=== PATIENT | male | born 1950 | race Caucasian/White ===

== ENCOUNTER → 2016-09-17 | Outpatient (CLI) | payer OTHER ==
--- NOTE | 2016-09-17 14:33 | DIAGNOSTIC IMAGING REPORT ---
(CHEST) THORAX WITHOUT CT DOSE: 356.70 mGy.cm HISTORY: Pulmonary nodule R91.8 Pulmonary [id number] TECHNIQUE: Multiaxial CT images of the chest were performed without contrast. A dose lowering technique was utilized adhering to the principles of ALARA. COMPARISON: 09/18/2015 FINDINGS: Several parenchymal nodules unchanged from the prior study. 2 nodules one of which is pleural-based occupy the superior segment of the right lower lobe. These are unchanged. Micronodularity right base with nodules up to 2 mm are unchanged. There are no focal infiltrative changes. There is no significant mediastinal adenopathy. There is mild abscess chronic change of the thoracic aorta. There are several small low suspicion nodes of the axillary regions unchanged. IMPRESSION: 1. Stable pulmonary micronodules compared to the prior exam. 2. No evidence for new interval or progressive parenchymal nodule. Please refer to below summary of Fleischner criteria recommendations for follow-up of incidental CT nodules (John Ladd, Guidelines for management of small pulmonary nodules detected on CT scans: A statement from the Fleischner Society, Radiology 237: [phone].) SOLID NODULES Solitary nodule size: <6 mm * low risk patients: no follow-up needed * high risk patients: optional CT at 12 months Solitary nodule size: 6-8 mm * low risk patients: follow-up at 6-12 months, then consider further follow-up at 18-24 months * high risk patients: initial follow-up CT at 6-12 months and then at 18-24 months if no change Solitary nodule size: >8 mm * either low or high risk patients - consider follow-up CT at 3 months, and/or CT-PET, and/or biopsy Multiple nodules size: <6 mm * low risk patients: no routine follow-up * high risk patients: optional CT at 12 months Multiple nodules size: 6-8 mm * low risk patients: follow-up at 3-6 months, then consider further follow-up at 18-24 months * high risk patients: follow-up at 3-6 months, then at 18-24 months if no change Multiple nodules size: >8 mm * low risk patients: follow-up at 3-6 months, then consider further follow-up at 18-24 months * high risk patients: follow-up at 3-6 months, then at 18-24 months if no change Note: newly detected indeterminate nodule in persons 35 years of age or older. * Low risk patients: minimal or absent history of smoking and/or other known risk factors * high risk patients: history of smoking or of other known risk factors (e.g. first degree relative with lung cancer, or exposure to asbestos, radon, uranium) * if a nodule up to 8 mm is partly solid or is ground glass further follow-up is required after 24 months to exclude possible slow growing adenocarcinoma (LUBNA) SUBSOIL NODULES Solitary pure ground-glass nodule * nodule size <6 mm - no CT follow-up required * nodule size >=6 mm - follow-up CT at 6-12 months, then every 2 years until 5 years Solitary part-solid nodule * nodule size <6 mm - no CT follow-up required * nodule size >=6 mm - follow-up CT at 3-6 months. If unchanged, and solid component remains <6 mm, then annual follow-up for 5 years Multiple subsolid nodules * nodule size <6 mm - follow-up CT at 3-6 months, consider further follow-up at 2 and 4 years if stable * nodule size >=6 mm - follow-up CT at 3-6 months, subsequent management based on the most suspicious nodule(s) The above report was generated using voice recognition software. It may contain grammatical, syntax or spelling errors. Electronically signed by: Alec Mccullough M.D. 09/17/2016 2:31 PM Dictated Date/Time: 09/17/2016 2:28 PM
== END | disposition home or self-care (01) ==
LOC: C.CTS 13:46
PROVIDERS: ATTEND Internal Medicine Geriatric Medicine
DX: R91.8 Other nonspecific abnormal finding of lung field (principal)

== ENCOUNTER → 2017-09-10 | Outpatient (CLI) | payer OTHER ==
[2017-09-10 17:13] LABS: BASO % 1.5 %; EOS % 6.6 %; EOS ABS # 0.43 K/uL (0-0.5); HEMATOCRIT 44.9 % (42-52); HEMOGLOBIN 14.9 g/dL (14.0-18.0); IG# 0.01 K/uL (0.00-0.02); LYMPH ABS # 1.44 K/uL (1.2-3.4); MEAN CELL VOLUME 90.2 fL (80-100); MEAN CORPUSCULAR HEMOGLOBIN 29.9 pg (25-34); MEAN CORPUSCULAR HGB CONC 33.2 g/dl (32-36); MEAN PLATELET VOLUME 12.3 fL (7.4-10.4); MONO % 10.9 %; MONO ABS # 0.71 K/uL (0.11-0.59); NEUT % 58.8 %; NEUT ABS # 3.85 K/uL (1.4-6.5); PLATELET COUNT 209 K/uL (130-400); RED CELL DISTRIBUTION WIDTH CV 14.1 % (11.5-14.5); RED CELL DISTRIBUTION WIDTH SD 45.8 fL (36.4-46.3); WHITE BLOOD COUNT 6.54 K/uL (4.8-10.8)
[2017-09-10 18:07] LABS: ALBUMIN 3.8 gm/dl (3.4-5.0); ALKALINE PHOSPHATASE 66 U/L (45-117); ALT/SGPT 19 U/L (12-78); AST/SGOT 20 U/L (15-37); BLOOD UREA NITROGEN 9 mg/dl (7-18); CALCIUM 8.8 mg/dl (8.5-10.1); CARBON DIOXIDE 29 mmol/L (21-32); CHOLESTEROL 211 mg/dl (0-200); CREATININE 0.94 mg/dl (0.60-1.40); GLUCOSE 80 mg/dl (70-99); LDL CHOLESTEROL CALCULATED 150 mg/dl; POTASSIUM 3.9 mmol/L (3.5-5.1); SODIUM 139 mmol/L (136-145); TOTAL PROTEIN 7.6 gm/dl (6.4-8.2)
== END | disposition home or self-care (01) ==
LOC: C.LABBC 13:47
PROVIDERS: ATTEND Internal Medicine Geriatric Medicine
DX: Z00.00 Encounter for general adult medical examination without abnormal findings (principal); E78.5 Hyperlipidemia, unspecified; F41.8 Other specified anxiety disorders; I65.29 Occlusion and stenosis of unspecified carotid artery; J43.9 Emphysema, unspecified

== ENCOUNTER 2023-08-20 06:26 | Inpatient (IN) ==
--- NOTE | 2023-08-07 12:55 | Anesthesiology Consultation ---
Date of Service August 07, 2023 Assessment & Plan (1) Encounter for pre-operative examination: Plan sugammadex allergy: anaphylaxis Dr. Schmidt advised nothing additional is needed other than this notation in chart. - acceptable to proceed pending anesthesiologist evaluation am DOS. Case cancelled 07/30/23 due to groin rash. - left shoulder rotator cuff tear: notation sent to OR for caution with posi tioning. - cardiology office visit 06/30/23 [place]: "...coronary artery disease: Status post three-vessel CABG. Heart rate and blood pressure are at target. Continue i ndependent exercise regimen and cardiac prudent diet. Medically, he will continue with antiplatelet agent (currently on dual agents), statin, ARB, and metoprolol succinate ER...Hyperlipidemia: Patient is high risk. High intensity statin therapy is recommended...Pre-operative cardiovascular examination, myocardial ischemia: The cataract surgery is a low risk surgery...may proceed without further cardiac workup...may hold aspirin and Plavix if needed. The vascular surgery by itself is considered high risk. However, he has had complete coronary revascularization which would make him low risk for myocardial ischemic complication of his vascular surgery. Therefore we would not recommend additional testing at this time. We would however recommend that he maintain at least 1 antiplatelet agent for the surgery if feasible. We would also recommend that he maintain metoprolol succinate even on the day of the operation. PAF (paroxysmal atrial fibrillation): Despite the fact that patient had biatrial cryo maze this is not always 100% effective. He has had some tachycardia type episodes. I would like to place him on a cardiac event monitor to see what exactly he is having with regard to rhythm. He also had an atrial appendage clip which should significantly reduce of cardioembolic stroke on its own without anticoagulation. I think for now we will keep him off of anticoagulation and he will just maintain an antiplatelet agent. Once I have the results of his event monitor I will likely change him to Plavix alone for CVA prophylaxis pre dominantly related to ischemia not cardioembolic. 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 Chart Review Chart Review: Acceptable Risk for Surgery and Patient NOT seen in Pre Admission Testing History Surgery Operation Date: 08/20/23 09:15 Proposed Procedures p Femoral to Femoral Bypass Graft, Possible Right Femoral to Popliteal Bypass Graft - Edgar Kulkarni MD Height/Weight Height: 5 ft 4 in Weight: 68.039 kg Allergies Allergy/AdvReac Type Severity Reaction Status Date / Time sugammadex Allergy Severe Anaphylaxis Verified 08/07/23 12:21 atorvastatin [From Lipitor] AdvReac Mild myalgia Verified 08/07/23 12:21 pravastatin AdvReac Mild myalgia Verified 08/07/23 12:21 rosuvastatin AdvReac Mild myalgia Verified 08/07/23 12:21 Medications Home Medications Medication Instructions Recorded Confirmed Last Taken alprazolam 0.5 mg tablet 0.5 mg PO DAILY PRN anxiety #30 12/04/21 08/07/23 05/08/22 20:00 tabs aspirin 81 mg tablet 81 mg PO QAM 11/22/22 08/07/23 07/30/23 05:00 losartan 25 mg tablet 25 mg PO QAM 06/27/23 08/07/23 07/30/23 05:00 metoprolol succinate 25 mg 25 mg PO QAM 06/27/23 08/07/23 07/30/23 05:00 tablet,extended release 24 hr paroxetine HCl 20 mg tablet 20 mg PO QAM 06/27/23 08/07/23 07/30/23 05:00 fluvastatin 40 mg capsule 40 mg PO QAM #90 caps 06/30/23 08/07/23 07/29/23 22:00 clopidogrel 75 mg tablet (Plavix) 75 mg PO QAM #90 tabs 07/14/23 08/07/23 07/28/23 nystatin 100,000 unit/gram topical 1 applic topical TID groin rash 08/07/23 08/07/23 Unknown powder Past Medical History Medical History Aortoiliac occlusive disease Carotid atherosclerosis (~2014) 60-69% stenosis in the left ICA Coronary artery disease (~08/2022) CABG x 3 Depression with anxiety Former smoker History of agoraphobia w/panic attacks History of optic neuritis (~1980) right Hx of gastroesophageal reflux (GERD) Hypertension controlled, stable per pt LBBB (left bundle branch block) chronic Nausea and vomiting after administration of anesthetic agent age 4 following sx; no issues with any recent surgeries PAF (paroxysmal atrial fibrillation) s/p left atrial appendage clip and PFO closure 08/2022, follows with [place] cardiology Parotid neoplasm Left FNA positive for neoplasm, see notes 10/2014. Pt deferred treatment. Pulmonary emphysema no inhalers, no issues. Pulmonary nodules stable 01/2017 Warthin's tumor bilat Past Family History Family History Father , age 67 Lung disease Myocardial infarction Denies family history of Ovarian cancer Prostate cancer Diabetes Breast cancer Lung cancer Colorectal cancer Stroke Past Surgical History Surgical History History of colonoscopy History of esophagogastroduodenoscopy (EGD) History of eye surgery right, as a child History of hernia repair left femoral Hx of CABG (08/2022) Triple @ [facility] Hx of cardiac cath (09/05/22) with left atrial appendage clip and PFO closure - transferred to [facility] for CABG Social History Smoking Status: Former smoker tobacco type: cigarettes Do You Dip or Chew Tobacco: No Smoking End Date: ~2021 Hx Alcohol Use: Yes (quit 1990) Alcohol type: beer Hx Substance Use: No substance use type: does not use Testing Electrocardiogram Date: 07/10/23 Sinus bradycardia with 1st degree AV block, rate 59 bpm Chest X-Ray Date: 07/10/23 No acute chest disease. Echocardiogram Date: 05/31/22 EF 50-55% Abnormal septal motion consistent with LBBB Mild cLVH Severely dilated LA Mildly dilated RV Mildly dilated RA Mild mitral regurgitation Stress Test Date: 03/21/22 1. Raw data analysis reveals mild motion artifact and minimal soft tissue attenuation. This is a good quality study. 2. Gated myocardial perfusion imaging demonstrates normal EF (62%) and no Lexiscan induced wall motion abnormalities. 3. There is a small to medium in size, mild to moderate intensity, reversible MPI defect involving the distal anterior and apical myocardium. These findings suggest mild to moderate myocardial ischemia. Cardiac Catheterization Date: 09/06/22 LMT-medium to large in caliber. There is an ostial calcified stenosis appearing up to 40% narrowed. There is also a distal lesion appearing 50 to 60% narrowed. There was pressure dampening on engagement of the left main with the 5 [place] diagnostic catheter. LAD- Medium to large caliber and transapical. Provides a small first diagonal and then as the vessel approaches the apex there is a medium caliber branch. The proximal LAD has a long eccentric mildly calcified stenosis of up to 80% in some views. Mid vessel and distal vessel have mild scattered disease. First diagonal is small with mild disease. The diagonal branch near the apex appears occluded and is small to medium in caliber. LCx-medium to large in caliber and nondominant. Ostial to proximal segment is calcified with mild diffuse disease. Vessel at essentially becomes a large branching OM1 which has diffuse mild disease. The AV groove vessel is small and terminates distally. Ramus-this appears to be 2 large caliber vessels which share an ostium. The fir st has a proximal 40% stenosis and the second has proximal 30% stenosis. There is diffuse mild plaques. RCA-large caliber and dominant. Proximally there is mild disease of up to 30%. Mid vessel has mild luminal irregularities in the distal vessel does not appear to have any significant disease. There is a large PDA and a large branching posterior lateral each of which has no angiographically evident disease. Referral to tertiary center regarding high risk PCI versus coronary artery bypass grafting given findings in the left main and LAD. Pulmonary Function Test Date: 10/11/22 FEV1 and FVC are mildly proportionately reduced with preserved ratio. No change after administration of inhaled bronchodilators however TLC is normal and diffusion capacity is slightly reduced. This is a nonspecific pattern and clinical correlation is recommended. Patient's MVV was reduced at 76% predicated. Other Testing Cardiac event monitor 07/29/23 AF occurred once with HR range 66-83; total AF burden < 1% Heart block occurred once, the most severe 1 degree slowest 73 bpm PACs were not found PVC burden < 1% Cardiac event monitor 07/05/23 New onset of atrial flutter Aorta with runoff CTA 04/16/23 1. Complete occlusion of the right common iliac artery with reconstitution at the bifurcation of the internal/external iliac arteries, unchanged. 2. Multifocal stenoses seen within the right iliac, bilateral common femoral, and bilateral superficial femoral arteries as described above. Probable focal areas of occlusion seen within the distal right superficial femoral. This is also unchanged. 3. Additional areas of vascular disease as described above. 4. Interval placement of left common iliac and external iliac stents. These appear to be patent. 5. Additional findings as described above Carotid doppler 10/10/22 Complex, calcified plaque visualized without evidence of significant stenosis in the right ICA 60-69% stenosis in the left ICA No significant stenosis in the external carotid arteries
--- NOTE | 2023-08-19 13:38 | History & Physical Report ---
Date of Service August 19, 2023 Assessment & Plan (1) PAD (peripheral artery disease): Plan: Patient is admitted for a fem fem bypass and possible right leg intervention or bypass. I have discussed the risks options and benefits of the procedure with the patient. The patient understands the risks options and benefits and agrees to the procedure. History of Present Illness Chief Complaint: aortoiliac disease Primary Care Provider: Jef Finch DO Mr. Lyle is an elderly male who presents for a 6-month follow-up visit regarding his history of aortoiliac occlusive disease and peripheral arterial disease. As you may remember the patient is status post aortogram with POMOLOGIST and stenting of his left common and external iliac arteries back in April 2022. During that procedure an attempt was made to revascularize his right common iliac artery occlusion, however, this lesion was unable to be traversed with a wire. Due to his continued right leg claudication, a discussion was had regarding possible leg bypass surgery, however, he was seen by cardiology and determined to have significant coronary disease. He then underwent three-vessel CABG with maze and atrial clip and PFO closure in September 2022 at [facility]. Patient presents today for a follow-up regarding his aortoiliac disease. Patient continues to state significant right buttock hip and thigh claudication after ambulating about 30 yards. Some days he can walk 50 to 80 yards, but his symptoms resolved after resting for a few minutes and he is able to ambulate a similar distance. He feels that this does inhibit his normal daily activities, and he is interested in having his leg revascularized. He states that if he pushes himself to walk far enough with the right leg, he does have a little bit of discomfort in the left thigh but this is not nearly as bad as he had been having prior to his intervention last year. He did not have imaging prior to today's appointment to evaluate his arteries. He denies any rest pain, nonhealing wounds or ulcerations, discoloration of the feet or toes. Allergies Allergy/AdvReac Type Severity Reaction Status Date / Time sugammadex Allergy Severe Anaphylaxis Verified 08/07/23 12:21 atorvastatin [From Lipitor] AdvReac Mild myalgia Verified 08/07/23 12:21 pravastatin AdvReac Mild myalgia Verified 08/07/23 12:21 rosuvastatin AdvReac Mild myalgia Verified 08/07/23 12:21 Home Medications Medication Instructions Recorded Confirmed Type alprazolam 0.5 mg tablet 0.5 mg PO DAILY PRN anxiety #30 12/04/21 08/07/23 Rx tabs aspirin 81 mg tablet 81 mg PO QAM 11/22/22 08/07/23 History losartan 25 mg tablet 25 mg PO QAM 06/27/23 08/07/23 History metoprolol succinate 25 mg 25 mg PO QAM 06/27/23 08/07/23 History tablet,extended release 24 hr paroxetine HCl 20 mg tablet 20 mg PO QAM 06/27/23 08/07/23 History fluvastatin 40 mg capsule 40 mg PO QAM #90 caps 06/30/23 08/07/23 Rx clopidogrel 75 mg tablet (Plavix) 75 mg PO QAM #90 tabs 07/14/23 08/07/23 Rx nystatin 100,000 unit/gram topical 1 applic topical TID groin rash 08/07/23 08/07/23 History powder Past Med/Surg History Problem List Rotator cuff tear, left PAD (peripheral artery disease) Claudication Lumbar spondylosis Lumbar stenosis Vitamin D deficiency Hyperlipidemia (Chronic) Medical History Hyperlipidemia Hx of gastroesophageal reflux (GERD) LBBB (left bundle branch block) chronic Warthin's tumor bilat Coronary artery disease (~08/2022) CABG x 3 Aortoiliac occlusive disease PAF (paroxysmal atrial fibrillation) s/p left atrial appendage clip and PFO closure 08/2022, follows with [place] cardiology Nausea and vomiting after administration of anesthetic agent age 4 following sx; no issues with any recent surgeries Former smoker Hypertension controlled, stable per pt History of agoraphobia w/panic attacks Pulmonary nodules stable 01/2017 Pulmonary emphysema no inhalers, no issues. 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 Pt deferred treatment. History of optic neuritis (~1980) right Depression with anxiety Carotid atherosclerosis (~2014) 60-69% stenosis in the left ICA Surgical History History of esophagogastroduodenoscopy (EGD) Hx of cardiac cath (09/05/22) with left atrial appendage clip and PFO closure - transferred to [facility] for CABG Hx of CABG (08/2022) Triple @ [facility] History of hernia repair left femoral History of eye surgery right, as a child History of colonoscopy Family History Father , age 67 Lung disease Myocardial infarction Denies family history of Ovarian cancer Prostate cancer Diabetes Breast cancer Lung cancer Colorectal cancer Stroke Social History Smoking Status: Former smoker Tobacco Type: Cigarettes Age Started Using Tobacco: 15; packs per day: 1; Smoking End Date: ~2021; Second Hand Exposure: No; Do You Dip or Chew Tobacco: No; Tobacco Cessation Education Requested by Patient: No Hx Alcohol Use: Yes (quit 1990) Alcohol type: beer Hx Substance Use: No Preferred Language: Canadian Communication Ability: Effective Visual Impairment: Limited Hearing Ability: Hard of Hearing Jewel Gauger Required: No Beliefs That Will Affect Care: None marital status: Current Living Situation: Spouse and Family current occupational status: employed and retired 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 [employer] How many Children do You have: 2 Other Information That Helps Us Care for You: No Feels Safe at Home: Yes Safety Concerns: Feels Safe At This Time Childhood Exposure to Second-Hand Smoke: Yes caffeine: Yes Dental Care, Regularly: No Physical Activity Frequency: Daily Seatbelt Use: always Sunscreen Use: Yes Assistive Devices: Denture - Upper, Denture - Lower and Glasses Review of Systems All systems reviewed & are unremarkable except as noted in HPI & below Physical Exam Physical Exam: Constitutional: In general patient is a healthy-appearing well-nourished well- developed elderly male no distress. He is alert and oriented without any focal deficits. His heart is regular, his lungs are decreased but clear. His abdomen is soft nontender with normoactive bowel sounds in all 4 quadrants. Brachial and radial pulses are +3. Femoral pulses are nonpalpable on the right, +2 on th e left. His left DP pulse is +1, PT is nonpalpable, with capillary refill at 4 seconds. His right DP and PT pulses are nonpalpable with capillary refill at 6 seconds. There is no edema.
[2023-08-20] MEDS ORDERED: PROMETHAZINE HCL 6.25 MG in SODIUM CHLORIDE 0.9% 50 ML IV PRN (06:46)
[2023-08-20] MEDS ORDERED: PHENYLEPHRINE/NSS 25 MG/250 ML BAG IV PRN ×2 (06:46→14:01)
[2023-08-20] MEDS ORDERED: ePHEDrine sulfate 50 MG/ML AMP IV PRN (06:46)
[2023-08-20] MEDS ORDERED: ONDANSETRON INJ 2 MG/ML 2 ML VIAL IV PRN ×2 (06:46→14:01)
[2023-08-20] MEDS ORDERED: LABETALOL HCL IV 5 MG/ML 20ML IV PRN (06:46)
[2023-08-20] MEDS ORDERED: ATROPINE SULFATE 0.1 MG/ML 10ML SYR IV PRN (06:46)
[2023-08-20] MEDS ORDERED: HYDROmorphone INJ 1 MG/ML SYRINGE IV PRN (06:46)
[2023-08-20] MEDS ORDERED: fentaNYL citrate PF 100 MCG/2 ML VIAL ONE (07:13)
[2023-08-20] MEDS ORDERED: DEXAMETHASONE SOD INJ 4 MG/ML VIAL ONE (07:14)
[2023-08-20] MEDS ORDERED: LIDOCAINE 2% 2 ML VIAL/AMP(20MG/ML) INFIL ONE (07:14)
[2023-08-20] MEDS ORDERED: ROCURONIUM BROMIDE 10 MG/ML 5 ML VIAL IV ONE ×2 (07:14→10:48)
[2023-08-20] MEDS ORDERED: PROPOFOL IV EMULSION 10 MG/ML 20 ML VIAL IV ONE (07:14)
[2023-08-20] MEDS ORDERED: ONDANSETRON INJ 2 MG/ML 2 ML VIAL ONE (07:14)
[2023-08-20] MEDS ORDERED: REMIFENTANIL HCL 1 MG VIAL IV ONE (07:26)
[2023-08-20] MEDS ORDERED: ALBUMIN HUMAN 5% 12.5 GM/250 ML VIAL IV ONE (07:27)
[2023-08-20] MEDS ORDERED: PHENYLEPHRINE HCL 25 MG/250 ML NSS IV ONE (07:29)
[2023-08-20] MEDS: LACTATED RINGER'S 1,000 ML IV SCH (07:29)
--- NOTE | 2023-08-20 07:32 | History & Physical Bridge Note ---
Date of Service August 20, 2023 History & Physical Bridge Note I have examined the patient, reviewed the History & Physical and in the interval since the performance of the History & Physical I have noted the following changes of clinical significance: no changes noted
[2023-08-20] MEDS ORDERED: MIDAZOLAM HCL 1 MG/ML 2ML VIAL ONE (07:45)
[2023-08-20] MEDS: CEFAZOLIN 2,000 MG/15 ML SYR IV SCH (08:00)
[2023-08-20] MEDS: GELATIN SPONGE 12-7MM ONE (08:53)
[2023-08-20] MEDS: THROMBIN FOR SOLN 20000 UNIT KIT ONE (08:53)
[2023-08-20] MEDS: GELATIN SPONGE SZ 100 ONE (08:54)
[2023-08-20] MEDS ORDERED: HEPARIN SOD (PORCINE) 1000 UNIT/ML ONE ×2 (08:58→10:05)
[2023-08-20] MEDS ORDERED: GLYCOPYRROLATE 0.2 MG/ML VIAL ONE (09:40)
[2023-08-20] MEDS ORDERED: NEOSTIGMINE METHYLSULFATE 1 MG/ML 10ML VIAL ONE (09:40)
[2023-08-20] MEDS: SURGICEL ABSORB HEMOSTAT 2IN X 14IN TOP ONE (09:49)
[2023-08-20] MEDS ORDERED: PROTAMINE SULFATE 10 MG/ML 5 ML VIAL IV ONE (10:53)
[2023-08-20] MEDS: HEPARIN (PORCINE) 1000 UNIT/ML 10 ML (CATH LAB USE ONLY) ONE (11:28)
[2023-08-20] MEDS: PAPAVERINE HCL INJ 30 MG/ML 2 ML VIAL ONE (11:30)
[2023-08-20] MEDS: BUPIVACAINE/EPINEPHRINE 0.5% MPF 1:200,000 30 ML VIAL ONE (11:30)
[2023-08-20] MEDS: ceFAZolin 330 MG/ML 1 GM VIAL ONE (11:30)
[2023-08-20] MEDS: LIDOCAINE 1% LOCAL 20 ML VIAL ONE (11:30)
[2023-08-20] MEDS: VISIPAQUE IV ONE (11:31)
--- NOTE | 2023-08-20 11:31 | Post Operative Brief Note ---
Immediate Post Op Note Date of Surgery August 20, 2023 Pre & Post Diagnosis Operation Date: 08/20/23 08:00 Pre-Op Diagnosis: Aortoiliac Occlusive Disease Post-Op Diagnosis: Aortoiliac Occlusive Disease I identified the patient and participated in the time-out.: Yes Procedure Operation Date: 08/20/23 08:00 Actual Procedures p Femoral to Femoral Bypass Graft Left to Right, Left Common Iliac and External Iliac Artery Stents, Bilateral common Femoral artery Endarterectomy, Bovine Patch Left Femoral Artery(Not Applicable) - Edgar Kulkarni MD Surgeon Edgar Kulkarni MD Installer Technician Francisco Javier,PAC Estimated Blood Loss 300 Findings Consistent with Post-Op Diagnosis Drains Sandhu Catheter Anesthesia Type General Complications none Disposition Accompanied Patient To Recovery: No Disposition: Recovery Room
[2023-08-20] MEDS: fentaNYL citrate PF 100 MCG/2 ML VIAL IV PRN (11:45)
[2023-08-20 12:09] LABS: Basophils # (auto) 0.04 K/uL (0.00-0.20); Basophils % (auto) 0.5 %; Eosinophils # (auto) 0.15 K/uL (0.00-0.50); Eosinophils % (auto) 1.7 %; Hematocrit (blood only) 33.9 % (42.0-52.0); Hemoglobin 11.1 g/dl (14.0-18.0); Immature Granulocytes # (auto) 0.07 K/uL (0.01-0.20); Immature Granulocytes % (auto) 0.8 %; Lymphocytes # (auto) 0.68 K/uL (1.20-3.40); Lymphocytes % (auto) 7.9 %; Mean Corpuscular Hemoglobin 31.1 pg (25.0-34.0); Mean Corpuscular Hgb Conc 32.7 g/dL (32.0-36.0); Mean Platelet Volume 11.5 fL (9.4-12.4); Monocytes # (auto) 0.17 K/uL (0.11-0.59); Neutrophils # (auto) 7.48 K/uL (1.40-6.50); Neutrophils % (auto) 87.1 %; Platelet Count 202 K/uL (130-400); RDW Coefficient of Variation 13.2 % (11.5-14.5); RDW Standard Deviation 45.3 fL (36.4-46.3); Red Blood Count 3.57 M/uL (4.70-6.10); White Blood Count 8.59 K/ul (4.8-10.8)
[2023-08-20] MEDS ORDERED: ALPRAZolam 0.5 MG TABLET PO PRN (14:01)
--- NOTE | 2023-08-20 14:21 | Anesthesiology Progress Note ---
Date of Service August 20, 2023 Anesthesia Post Procedure Vital Signs Vital Signs: Temp Pulse Pulse Resp BP BP BP 08/20/23 13:30 36.4 C L 08/20/23 13:15 86 18 112/62 108/50 L 08/20/23 13:00 83 16 104/57 L 109/51 L 08/20/23 12:45 83 18 109/62 112/48 L 08/20/23 12:30 36.5 C 82 16 110/58 L 114/47 L 08/20/23 12:20 83 18 107/59 L 106/47 L 08/20/23 12:10 84 12 103/58 L 105/46 L 08/20/23 12:00 85 14 104/64 112/55 L 08/20/23 11:50 86 16 130/76 130/51 L 08/20/23 11:43 36.2 C L 86 14 131/72 08/20/23 06:53 36.6 C 64 18 115/72 125/65 Pulse Ox O2 Del Method O2 Flow Rate 08/20/23 13:30 08/20/23 13:15 97 Nasal Cannula 2 08/20/23 13:00 96 Nasal Cannula 2 08/20/23 12:45 97 Nasal Cannula 2 08/20/23 12:30 97 Nasal Cannula 2 08/20/23 12:20 97 Oxymask 2 08/20/23 12:10 97 Oxymask 4 08/20/23 12:00 98 Oxymask 6 08/20/23 11:50 99 Oxymask 6 08/20/23 11:43 97 Oxymask 6 08/20/23 06:53 96 Room Air Pain Intensity Left Shoulder: Pain Intensity: 5 Transfer of Care Handoff Completed per policy Notes Mental Status: alert / awake / arousable and participated in evaluation Patient Amnestic to Procedure: Yes Nausea / Vomiting: adequately controlled Pain: adequately controlled Airway Patency, RR, SpO2: stable & adequate BP & HR: stable & adequate Hydration State: stable & adequate Anesthetic Complications: no major complications apparent and Pt Satisfied with anesthetic care
--- NOTE | 2023-08-20 14:24 | Critical Care Consultation ---
Date of Consultation August 20, 2023 Assessment & Plan (1) PAD (peripheral artery disease): Postop day 0 status post femoral to femoral bypass graft and bilateral iliac artery stenting. Symptoms appear improved. Monitor hemodynamics closely in the ICU. Frequent neurovascular checks. Antiplatelet therapy in the form of aspirin and Plavix ordered by the vascular surgeon. Defer antihypertensive regimen to vascular surgeon. Patient ordered as needed morphine and oxycodone for pain control by the vascular surgeon. Discussed with bedside nursing. ICU is available should the need arise for critical care interventions. Thank you for the consult. History of Present Illness Reason for Consultation: Status post day 0 femoral to femoral bypass graft left to right, left common iliac and external iliac artery stents, bilateral common femoral artery endarterectomy, bovine patch left femoral artery Attending Physician: Edgar Kulkarni MD History of Present Illness 73-year-old male with a history of coronary artery disease status post CABG x 3, hypertension, aortoiliac occlusive disease secondary, PAD, emphysema and GERD w ho presents today for an elective Femoral to femoral bypass. Patient is known to vascular surgery and has had numerous procedures including an attempt to revascularize his right common iliac artery, but lesion was unable to be traversed with a wire. Patient denies any major complaints currently. Pulses intact distally in the lower extremities. Hemodynamically stable. Patient with estimated 300 mL blood loss in the OR. Postop hemoglobin is 11.1 which is slightly down from preop hemoglobin of 12.8. Allergies Allergy/AdvReac Type Severity Reaction Status Date / Time sugammadex Allergy Severe Anaphylaxis Verified 08/20/23 07:09 atorvastatin [From Lipitor] AdvReac Mild myalgia Verified 08/20/23 07:09 pravastatin AdvReac Mild myalgia Verified 08/20/23 07:09 rosuvastatin AdvReac Mild myalgia Verified 08/20/23 07:09 Home Medications Medication Instructions Recorded Confirmed Type alprazolam 0.5 mg tablet 0.5 mg PO DAILY PRN anxiety #30 12/04/21 08/07/23 Rx tabs aspirin 81 mg tablet 81 mg PO QAM 11/22/22 08/20/23 History losartan 25 mg tablet 25 mg PO QAM 06/27/23 08/20/23 History metoprolol succinate 25 mg 25 mg PO QAM 06/27/23 08/20/23 History tablet,extended release 24 hr paroxetine HCl 20 mg tablet 20 mg PO QAM 06/27/23 08/20/23 History fluvastatin 40 mg capsule 40 mg PO QAM #90 caps 06/30/23 08/20/23 Rx clopidogrel 75 mg tablet (Plavix) 75 mg PO QAM #90 tabs 07/14/23 08/20/23 Rx nystatin 100,000 unit/gram topical 1 applic topical TID groin rash 08/07/23 08/20/23 History powder Patient History Medical History Hyperlipidemia Hx of gastroesophageal reflux (GERD) LBBB (left bundle branch block) chronic Warthin's tumor bilat Coronary artery disease (~08/2022) CABG x 3 Aortoiliac occlusive disease PAF (paroxysmal atrial fibrillation) s/p left atrial appendage clip and PFO closure 08/2022, follows with [facility] Nausea and vomiting after administration of anesthetic agent age 4 following sx; no issues with any recent surgeries Former smoker Hypertension controlled, stable per pt History of agoraphobia w/panic attacks Pulmonary nodules stable 01/2017 Pulmonary emphysema no inhalers, no issues. 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 Pt deferred treatment. History of optic neuritis (~1980) right Depression with anxiety Carotid atherosclerosis (~2014) 60-69% stenosis in the left ICA Surgical History History of esophagogastroduodenoscopy (EGD) Hx of cardiac cath (09/05/22) with left atrial appendage clip and PFO closure - transferred to [facility] for CABG Hx of CABG (08/2022) Triple @ [facility] History of hernia repair left femoral History of eye surgery right, as a child History of colonoscopy Family History Father , age 67 Lung disease Myocardial infarction Denies family history of Ovarian cancer Prostate cancer Diabetes Breast cancer Lung cancer Colorectal cancer Stroke Social History Smoking Status: Former smoker Tobacco Type: Cigarettes Age Started Using Tobacco: 15; packs per day: 1; Smoking End Date: ~2021; Second Hand Exposure: No; Do You Dip or Chew Tobacco: No; Tobacco Cessation Education Requested by Patient: No Hx Alcohol Use: Yes (quit 1990) Alcohol type: beer Hx Substance Use: No Preferred Language: Arabic Communication Ability: Effective Visual Impairment: Limited Hearing Ability: Hard of Hearing Branch Operations Coordinator Required: No Beliefs That Will Affect Care: None marital status: Current Living Situation: Spouse and Family current occupational status: employed and retired 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 Patient is in no apparent distress. Patient is well-developed. Eyes: Pupils are equal round and reactive to light. Conjunctivae are normal. Anicteric sclera. Ears nose, mouth and throat: Mallampati class 2. Normal posterior oropharynx. Uvula is midline. Neck: Trachea is midline. Visual inspection is normal. Respiratory: Clear to auscultation bilaterally. No use of accessory muscles. No significant clubbing noted. Cardiovascular: Regular rate and rhythm. No murmurs. No edema. Gastrointestinal: Normal bowel sounds, soft, nontender and nondistended. No hepatosplenomegaly noted. Musculoskeletal: No cyanosis. Patient is able to move all extremities. Strength is 5 out of 5 in the upper and lower extremities. Skin: No rashes, warm dry and intact. Neurologic: No obvious focal neurological deficits seen. Psychiatric: Alert and oriented x3 with a euthymic affect. Results & Data Results & Data Vital Signs (Past 12 Hours) Vital Signs Temp Pulse Pulse Resp BP BP BP 08/20/23 13:30 36.4 C L 08/20/23 13:15 86 18 112/62 108/50 L 08/20/23 13:00 83 16 104/57 L 109/51 L 08/20/23 12:45 83 18 109/62 112/48 L 08/20/23 12:30 36.5 C 82 16 110/58 L 114/47 L 08/20/23 12:20 83 18 107/59 L 106/47 L 08/20/23 12:10 84 12 103/58 L 105/46 L 08/20/23 12:00 85 14 104/64 112/55 L 08/20/23 11:50 86 16 130/76 130/51 L 08/20/23 11:43 36.2 C L 86 14 131/72 08/20/23 06:53 36.6 C 64 18 115/72 125/65 Pulse Ox O2 Del Method O2 Flow Rate 08/20/23 13:30 08/20/23 13:15 97 Nasal Cannula 2 08/20/23 13:00 96 Nasal Cannula 2 08/20/23 12:45 97 Nasal Cannula 2 08/20/23 12:30 97 Nasal Cannula 2 08/20/23 12:20 97 Oxymask 2 08/20/23 12:10 97 Oxymask 4 08/20/23 12:00 98 Oxymask 6 08/20/23 11:50 99 Oxymask 6 08/20/23 11:43 97 Oxymask 6 08/20/23 06:53 96 Room Air Coding Level of Care Code 60209 IN/OBS CONSULT LVL 3,45M Diagnoses PAD (peripheral artery disease) I73.9
[2023-08-20] MEDS: D5W AND 1/2NSS 1,000 ML IV SCH (15:05)
[2023-08-20] MEDS: ceFAZolin 2000MG 2,000 MG/15 ML SYR IV SCH (16:50)
[2023-08-21 05:13] LABS: BUN Creatinine Ratio 19.2 (10-20); Basophils # (auto) 0.01 K/uL (0.00-0.20); Basophils % (auto) 0.1 %; Creatinine Clr Calc Pharmacy 68.5 ml/min; Est GFR (African American) 102.3 ml/min; Est GFR (Non-African American) 88.3 ml/min; Hematocrit (blood only) 33.5 % (42.0-52.0); Immature Granulocytes # (auto) 0.06 K/uL (0.01-0.20); Immature Granulocytes % (auto) 0.5 %; Lymphocytes # (auto) 0.88 K/uL (1.20-3.40); Lymphocytes % (auto) 6.7 %; Mean Corpuscular Hemoglobin 31.2 pg (25.0-34.0); Mean Corpuscular Hgb Conc 32.8 g/dL (32.0-36.0); Mean Corpuscular Volume 94.9 fL (80.0-100.0); Monocytes % (auto) 12.1 %; Neutrophils # (auto) 10.67 K/uL (1.40-6.50); Neutrophils % (auto) 80.6 %; Platelet Count 240 K/uL (130-400); Potassium 4.3 mmol/L (3.5-5.1); RDW Coefficient of Variation 13.4 % (11.5-14.5); RDW Standard Deviation 45.7 fL (36.4-46.3); Red Blood Count 3.53 M/uL (4.70-6.10); White Blood Count 13.22 K/ul (4.8-10.8)
[2023-08-21] MEDS: FLUVASTATIN SODIUM 20 MG CAP PO SCH (08:22)
[2023-08-21] MEDS: oxyCODONE/ACETAMINOPHEN 5mg/325mg TAB PO PRN (08:22)
[2023-08-21] MEDS: CLOPIDOGREL BISULFATE 75 MG TAB PO SCH (08:23)
[2023-08-21] MEDS: PARoxetine HCL 20 MG TAB PO SCH (08:23)
[2023-08-21] MEDS: METOPROLOL SUCC 25MG EXT REL TAB PO SCH (08:23)
[2023-08-21] MEDS: ASPIRIN 81 MG ECTAB PO SCH (08:24)
[2023-08-21] MEDS: LOSARTAN POTASSIUM 25 MG TAB PO SCH (08:24)
--- NOTE | 2023-08-21 11:21 | Critical Care Progress Note ---
Date of Service August 21, 2023 Assessment & Plan (1) PAD (peripheral artery disease): Plan: Postop day 1 status post femoral to femoral bypass graft and bilateral iliac artery stenting. Symptoms appear improved. Bilateral wound vacs in place. Pain controlled. Antiplatelet and antihypertensive regimen per surgical team. Discussed on multidisciplinary rounds. Critical care services to sign off at this time. Please call with questions. Thank you for the consult. Admission and Anticipated Discharge Date Admission Date: August 20, 2023 Subjective No present issues. Patient tolerating his wound vacs well. Hemodynamically stable. Review of Systems Review of Systems: All systems reviewed & are unremarkable except as noted in HPI & below Physical Exam Physical Exam: Constitutional: Patient appears to be of their stated age. Patient is in no apparent distress. Patient is well-developed. Eyes: Pupils are equal round and reactive to light. Conjunctivae are normal. Anicteric sclera. Ears nose, mouth and throat: Mallampati class 2. Normal posterior oropharynx. Uvula is midline. Neck: Trachea is midline. Visual inspection is normal. Respiratory: Clear to auscultation bilaterally. No use of accessory muscles. No significant clubbing noted. Cardiovascular: Regular rate and rhythm. No murmurs. No edema. Gastrointestinal: Normal bowel sounds, soft, nontender and nondistended. No hepatosplenomegaly noted. Musculoskeletal: No cyanosis. Patient is able to move all extremities. Strength is 5 out of 5 in the upper and lower extremities. Skin: No rashes, warm dry and intact. Neurologic: No obvious focal neurological deficits seen. Psychiatric: Alert and oriented x3 with a euthymic affect. Results & Data Results & Data Vital Signs (Past 12 Hours) Vital Signs Temp Pulse Pulse Resp BP BP BP 08/21/23 06:00 89 18 08/21/23 06:00 127/69 08/21/23 05:00 119/70 08/21/23 05:00 36.6 C 98 H 20 119/70 135/63 08/21/23 04:48 92 H 21 08/21/23 04:00 94 H 124/59 L 08/21/23 03:00 78 20 116/75 08/21/23 02:00 94 H 23 135/84 08/21/23 01:00 36.5 C 86 20 109/71 127/59 L 08/21/23 00:00 95 H 08/21/23 00:00 36.7 C 89 22 113/65 122/58 L 08/21/23 00:00 90 118/59 L Pulse Ox O2 Del Method O2 Flow Rate 08/21/23 06:00 97 Nasal Cannula 2 08/21/23 06:00 08/21/23 05:00 08/21/23 05:00 96 Nasal Cannula 2 08/21/23 04:48 95 08/21/23 04:00 08/21/23 03:00 95 08/21/23 02:00 98 08/21/23 01:00 95 Nasal Cannula 2 08/21/23 00:00 08/21/23 00:00 95 Nasal Cannula 2 08/21/23 00:00 Coding Level of Care Code 88436 SUB INP/OBS CARE Diagnoses PAD (peripheral artery disease) I73.9
--- NOTE | 2023-08-21 13:03 | Surgery Progress Note ---
Date of Service August 21, 2023 Assessment & Plan (1) PAD (peripheral artery disease): Plan: This patient is postoperative day 1 from stenting of his left iliac artery and a femorofemoral bypass. He is doing well. His leg feels much better. At this point we will transfer him to a surgical floor. We will increase his activity with PT and OT therapy. Admission and Anticipated Discharge Date Admission Date: August 20, 2023 Subjective Patient is complaining of incisional pain in both groins. He denies any foot pain or leg pain. Physical Exam Constitutional: WD/WN, vitals as above Respiratory: normal respiratory effort; no respiratory distress Cardiovascular: Rate/Rhythm: regular rate and regular rhythm Vessels: posterior tibial pulses present (He has a posterior tibial Doppler pulse in the right foot) Extremities: normal capillary refill The Doppler pulses markedly improved from preop. Skin: + incision (Prevena dressings are intact .) Neurologic: CN's II-XI intact bilaterally and moves all extremities Psychiatric: Orientation: alert and oriented x 3 Results & Data Vital Signs (Past 12 Hours) Vital Signs Temp Pulse Pulse Resp BP BP BP 08/21/23 06:00 89 18 08/21/23 06:00 127/69 08/21/23 05:00 119/70 08/21/23 05:00 36.6 C 98 H 20 119/70 135/63 08/21/23 04:48 92 H 21 08/21/23 04:00 94 H 124/59 L 08/21/23 03:00 78 20 116/75 08/21/23 02:00 94 H 23 135/84 Pulse Ox O2 Del Method O2 Flow Rate 08/21/23 06:00 97 Nasal Cannula 2 08/21/23 06:00 08/21/23 05:00 08/21/23 05:00 96 Nasal Cannula 2 08/21/23 04:48 95 08/21/23 04:00 08/21/23 03:00 95 08/21/23 02:00 98
[2023-08-21] MEDS: MoRPHine SULFATE 4 MG/ML 1 ML CARP\\VIAL IV PRN (14:22)
[2023-08-22] MEDS ORDERED: oxyCODONE HCL IR 5 MG TAB (IMMEDIATE RELEASE) PO PRN (11:22)
--- NOTE | 2023-08-22 11:28 | Surgery Progress Note ---
Date of Service August 22, 2023 Assessment & Plan (1) PAD (peripheral artery disease): Plan: This patient is postoperative day 2 from stenting of his left iliac artery and a femorofemoral bypass. He is doing well. His leg feels much better. He may be ready to go home tomorrow. He says he does not need rehab Admission and Anticipated Discharge Date Admission Date: August 20, 2023 Subjective Patient is complaining of incisional pain in both groins. He denies any foot pain or leg pain. He was up and ambulating with a walker. Physical Exam Constitutional: WD/WN, vitals as above Respiratory: normal respiratory effort; no respiratory distress Cardiovascular: Rate/Rhythm: regular rate and regular rhythm Vessels: posterior tibial pulses present (He has a posterior tibial Doppler pulse in the right foot) Extremities: normal capillary refill Skin: + incision (Prevena dressings are intact .) Neurologic: CN's II-XI intact bilaterally and moves all extremities Psychiatric: Orientation: alert and oriented x 3 Results & Data Vital Signs (Past 12 Hours) Vital Signs Temp Pulse Resp BP Pulse Ox O2 Del Method 08/22/23 07:22 37.1 C 100 H 16 114/61 92 Room Air
[2023-08-22] MEDS: ACETAMINOPHEN 500 MG TAB PO PRN (13:40)
--- NOTE | 2023-08-23 08:57 | Surgery Progress Note ---
Date of Service August 23, 2023 Assessment & Plan (1) PAD (peripheral artery disease): Plan: This patient is postoperative day 3 from stenting of his left iliac artery and a femorofemoral bypass. Edematous scrotum is improving but ecchymotic. Wants to go home. Claims he can do well at home without rehab. Has a few stairs which he will take one at a time. He is ambulating with a walker in the [place]im[place]. Will d/c today Admission and Anticipated Discharge Date Admission Date: August 20, 2023 Subjective Patient is ambulating with a walker. Able to get in and out of bed by himself. Still has incisional pain but improving. Physical Exam Constitutional: WD/WN, vitals as above Respiratory: normal respiratory effort; no respiratory distress Cardiovascular: Rate/Rhythm: regular rate and regular rhythm Vessels: posterior tibial pulses present (He has a posterior tibial Doppler pulse in the right foot) Extremities: normal capillary refill Musculoskeletal: Extremities: strength 5/5 throughout Skin: + incision (Prevena dressings are intact .) Neurologic: CN's II-XI intact bilaterally and moves all extremities Psychiatric: Orientation: alert and oriented x 3 Genitourinary: + edematous scrotum and + scrotal ecchym osis Results & Data Vital Signs (Past 12 Hours) Vital Signs Temp Pulse Resp BP Pulse Ox O2 Del Method 08/23/23 07:28 36.7 C 95 H 16 111/67 94 Room Air
--- NOTE | 2023-08-23 09:04 | Discharge Summary ---
Date of Service August 23, 2023 Admission HPI Per Admitting Provider Mr. Lyle is an elderly male who presents for a 6-month follow-up visit regarding his history of aortoiliac occlusive disease and peripheral arterial disease. 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 During that procedure an attempt was made to revascularize his right common iliac artery occlusion, however, this lesion was unable to be traversed with a wire. Due to his continued right leg claudication, a discussion was had regarding possible leg bypass surgery, however, he was seen by cardiology and determined to have significant coronary disease. He then underwent three-vessel CABG with maze and atrial clip and PFO closure in September [address] [facility]. Patient presents today for a follow-up regarding his aortoiliac disease. Patient continues to state significant right buttock hip and thigh claudication after ambulating about 30 yards. Some days he can walk 50 to 80 yards, but his symptoms resolved after resting for a few minutes and he is able to ambulate a similar distance. He feels that this does inhibit his normal daily activities, and he is interested in having his leg revascularized. He states that if he pushes himself to walk far enough with the right leg, he does have a little bit of discomfort in the left thigh but this is not nearly as bad as he had been having prior to his intervention last year. He did not have imaging prior to today's appointment to evaluate his arteries. He denies any rest pain, nonhealing wounds or ulcerations, discoloration of the feet or toes. Admission Exam Per Admitting Provider Constitutional: In general patient is a healthy-appearing well-nourished well- developed elderly male no distress. He is alert and oriented without any focal deficits. His heart is regular, his lungs are decreased but clear. His abdomen is soft nontender with normoactive bowel sounds in all 4 quadrants. Brachial and radial pulses are +3. Femoral pulses are nonpalpable on the right, +2 on the left. His left DP pulse is +1, PT is nonpalpable, with capillary refill at 4 seconds. His right DP and PT pulses are nonpalpable with capillary refill at 6 seconds. There is no edema. Principal Diagnosis Aortoiliac occlusive disease Discharge Exam Constitutional: In general patient is a healthy-appearing well-nourished well- developed elderly male no distress. He is alert and oriented without any focal deficits. His heart is regular, his lungs are decreased but clear. His abdomen is soft nontender with normoactive bowel sounds in all 4 quadrants. Brachial and radial pulses are +3. Femoral pulses are nonpalpable on the right, +2 on the left. His left DP pulse is +1, PT is nonpalpable, with capillary refill at 4 seconds. His right DP and PT pulses are nonpalpable with capillary refill at 6 seconds. There is no edema. Constitutional WD/WN, vitals as above Respiratory normal respiratory effort; no respiratory distress Cardiovascular Rate/Rhythm: regular rate and regular rhythm Vessels: posterior tibial pulses present (He has a posterior tibial Doppler pulse in the right foot) Extremities: normal capillary refill Musculoskeletal Extremities: strength 5/5 throughout Skin + incision (Prevena dressings are intact.) Neurologic CN's II-XI intact bilaterally and moves all extremities Psychiatric Orientation: alert and oriented x 3 Genitourinary + edematous scrotum and + scrotal ecchymosis Discharge Data Allergies Allergy/AdvReac Type Severity Reaction Status Date / Time sugammadex Allergy Severe Anaphylaxis Verified 08/20/23 07:09 atorvastatin [From Lipitor] AdvReac Mild myalgia Verified 08/20/23 07:09 pravastatin AdvReac Mild myalgia Verified 08/20/23 07:09 rosuvastatin AdvReac Mild myalgia Verified 08/20/23 07:09 Consultations 08/20/23 14:01 Consult Assembly Line Machine Operator Routine Procedures Performed Operation Date: 08/20/23 08:00 Actual Procedures p Femoral to Femoral Bypass Graft, Left Common Iliac and External Iliac Stent, Bilateral common Femoral artery Endarterectomy, Bovine Patch Left Femoral Artery(Not Applicable) - Edgar Kulkarni MD Ordered Studies 08/20/23 07:09 EV angio LE RT Routine Hospital Course (1) PAD (peripheral artery disease): This patient is postoperative day 3 from stenting of his left iliac artery and a femorofemoral bypass. Edematous scrotum is improving but ecchymotic. Wants to go home. Claims he can do well at home without rehab. Has a few stairs which he will take one at a time. He is ambulating with a walker in the [place]. Will d/c today Total Time Total Time Spent Total Time Spent (In Minutes): 0 Discharge Plan Discharge Items Patient Disposition: Home - Self-Care Reason For Visit: Aortoiliac Occlusive Disease Discharge Diagnosis: Aortoiliac occlusive disease Activity: Per Instructions section Non-emergency contact: Surgeon Call non-emergency contact if: your temperature is above 101.5, your wound has increased redness, your wound has increased drainage and your wound pain has increased Follow-up/Referrals: Jef Finch, [Primary Care Provider] - Diet: Heart Healthy Addtl Attending Provider Instructions: ACTIVITY RECOMMENDATIONS: Do not get groin dressings wet Ambulate as much as possible Keep leg elevated when sitting Once dressings loose their suction, may remove and discard entire system SPECIAL CARE INSTRUCTIONS: Call your doctor if: * Temperature above 101 degrees * Pain not relieved by pain medicine ordered * There is increased drainage or redness from any incision * You have any unanswered questions or concerns. Call [phone] to schedule a follow up appointment if one not already scheduled. Pending Studies at Discharge: No Stand-Alone Forms: [facility] [employer], Smoking Cessation Medications and DC Order Prescriptions: New oxycodone 5 mg Tablet 5 mg PO Q6 PRN (Reason: pain) Qty: 30 0RF Continued alprazolam 0.5 mg tablet 0.5 mg PO DAILY PRN (Reason: anxiety) Qty: 30 2RF clopidogrel [Plavix] 75 mg tablet 75 mg PO QAM Qty: 90 3RF fluvastatin 40 mg capsule 40 mg PO QAM Qty: 90 3RF aspirin 81 mg tablet 81 mg PO QAM paroxetine HCl 20 mg tablet 20 mg PO QAM losartan 25 mg tablet 25 mg PO QAM metoprolol succinate 25 mg tablet extended release 24 hr 25 mg PO QAM nystatin 100,000 unit/gram powder 1 applic topical TID Discharge Orders: Discharge Order (Routine); Ordered 08/23/23 Ordered By: Edgar Kulkarni Admission Data Admit Date/Time: 08/20/23 07:26 Attending Provider: Edgar Kulkarni Admit Provider: Edgar Kulkarni Primary Care Provider: Jef Finch Other Providers: Jef Marino; Wang Champion; Armani Jeffers; Rylan Stephens; Edwar Zayas; Karla Mcgregor; Won Cook; Kayla Fletcher; Carolina Boyd; Eldon Templeton; Raad Denise; Anna Whipple
--- NOTE | 2023-09-02 08:55 | Operative Report ---
Post Operative Report Pre & Post Diagnosis Operation Date: 08/20/23 08:00 Pre-Op Diagnosis: Aortoiliac Occlusive Disease Post-Op Diagnosis: Aortoiliac Occlusive Disease I identified the patient and participated in the time-out.: Yes Procedure Operation Date: 08/20/23 08:00 Actual Procedures p Femoral to Femoral Bypass Graft, Left Common Iliac and External Iliac Stent, Bilateral common Femoral artery Endarterectomy, Bovine Patch Left Femoral Artery(Not Applicable) - Edgar Kulkarni MD Surgeon Edgar Kulkarni MD Newspaper Reporter Francisco JavierPAC Estimated Blood Loss 300 Findings Consistent with Post-Op Diagnosis Specimens none Anesthesia Type General Complications none Disposition Accompanied Patient To Recovery: No Disposition: Recovery Room Indications This is a 73 gentleman who has a stenosis of the left common and external iliac artery velocity right iliac artery occlusion. His common femoral arteries also have significant plaque with significant narrowing and occlusions. Bilateral femoral artery endarterectomies of the femorofemoral bypass was recommended as well as stenting of his left iliac system. I have discussed the risks options and benefits of the procedure with the patient. The patient understands the risks options and benefits and agrees to the procedure. Description of Procedure The patient was taken operating placed spine position. Both groins and prepped draped in sterile manner. At this complete a timeout was performed and the patient was identified. Bilateral groin incisions were then made. This carried out very common femoral arteries identified on both sides. They were heavily calcified. They were dissected free from the inguinal ligament down past the bifurcation. Once dissected free the patient was heparinized. After heparinization was accomplished the left common femoral artery was clamped proximally from the superficial femoral vein distally. Longitudinal arteriotomy was started on the common femoral artery and the left side. This was carried upward and downward to beyond the plaque. Endarterectomy was started in appropriate plane. This carried down to a nice breakoff point was seen proximally and distally. The artery itself has a significant amount of plaque and was fairly open. Once the plaque was removed we closed the arteriotomy with a bovine patch. At that point we punctured the bovine patch and inserted an 8 [place] sheath. Hand-injection was done which showed a severe stenosis of the distal common and proximal external iliac artery on the left side. We stented this with a 8 x 39 mm x 29 VBX stent then dilated post stenting with a 12 mm balloon. Completion arteriogram showed a widely patent iliac system on the left side. We then clamped the right common femoral artery proximal distally. We did a longitudinal arteriotomy which again showed a severe amount of plaque causing a severe near occlusive narrowing. Endarterectomy was then performed of the common femoral artery and the right side. After the endarterectomy was completed and all loose debris was removed a tunnel was made and a 8 mm propatent graft was passed from the left to the right groins. The graft in the right groin was then trimmed and prepped appropriate fashion. An end to side anastomosis was accomplished with the right common femoral artery in the usual vascular fashion. Once this was completed the femoral artery was flushed through the graft and the graft clamped just beyond the anastomosis. Adequate the left common femoral artery was reclamped proximal distally. The sheath pulled and the puncture in the bovine graft was then closed with a 5-0 Prolene single stitch. The patch was then opened longitudinally. The [place] propatent graft was then trimmed and beveled the appropriate length and side anastomosis accomplished between the cross femoral bypass graft and the left common femoral artery patch again in the usual vascular fashion using a running 5-0 Prolene suture. Prior to completing this closure backbleeding and forward bleeding was allowed to occur. Final few sutures were placed and securely tied. Clamps were removed. Excellent flow was seen through the bypass. There was good Doppler signals heard distally beyond the bypass. There is good distal signals heard in the foot on both sides. At that point adequate hemostasis was obtained. Once adequate hemostasis was noted the wounds were closed in usual fashion using a running 2-0 Vicryl suture for the femoral sheath and a running 3-0 Vicryl suture for subcutaneous layer. [place] were used for the skin closure and Prevena dressings were placed on both wounds.The patient left the operation room in satisfactory condition and tolerated the procedure well. All needle and sponge counts were correct at the end of the procedure. Estefania Wilson Pac assisted due to lack of resident availability and was necessary for positioning, draping, retraction, wound closure deep layers, subcutaneous tissue, and skin closure and was necessary for assisting with the case. I attest to the content of the Intraoperative Record and any orders documented therein. Any exceptions are noted below.
== END 2023-08-23 11:54 | disposition home or self-care (01) | DRG 254 ==
LOC: ASU 06:26 → 1E 07:26 → 3N 08-21 17:44